=== PATIENT | male | born 1995 | race Two or more races ===

== ENCOUNTER 2017-04-11 07:50 | Emergency (ER) | payer SELFPAY ==
[~2017-04-11] VITALS: Ht 182.9 cm; Wt 90.7 kg
--- NOTE | 2017-04-11 07:50 | NUR ---
bibra [address] for ETOH. placed on monitor.
--- NOTE | 2017-04-11 12:02 | NUR ---
Patient discharged to home in stable condition. Written and verbal after care instructions given. Patient verbalizes understanding of instruction. ambulatory alert oriented
[2017-04-11 12:03] VITALS: BP 120/70
== END 2017-04-11 12:15 | disposition home or self-care (01) ==
LOC: ER 07:51
DX: S00.83XA Contusion of other part of head, initial encounter (principal); F10.129 Alcohol abuse with intoxication, unspecified; X58.XXXA Exposure to other specified factors, initial encounter; Y92.89 Other specified places as the place of occurrence of the external cause; Y93.89 Activity, other specified; Y99.8 Other external cause status
CPT/HCPCS: 82962-TC; A4606; Z7610